=== PATIENT | female | born 1965 | race Caucasian/White ===

== ENCOUNTER 2018-02-10 01:26 | Emergency (ER) | payer BC ==
[~2018-02-10] VITALS: Ht 154.9 cm; Wt 69.5 kg
[~2018-02-10 01:26] MED LIST: B-12; B12 5,000 MCG1 EACH PO; DEXILANT60 MG PO; HYDROCODON-ACE1 EAC7 PO; NIACIN50 MG PO; NORCO 5/3251 TABLET PO; PROVENTIL,200 INHALA; SOMA350 MG PO; ULTRAM50 MG PO
[2018-02-10 03:26] VITALS: BP 116/68
== END 2018-02-10 03:28 | disposition home or self-care (01) ==
LOC: EME 01:26
DX: S00.83XA Contusion of other part of head, initial encounter (principal); W20.8XXA Other cause of strike by thrown, projected or falling object, initial encounter; Y93.K9 Activity, other involving animal care; E04.2 Nontoxic multinodular goiter; J45.909 Unspecified asthma, uncomplicated; F17.200 Nicotine dependence, unspecified, uncomplicated; Z98.51 Tubal ligation status; Z98.1 Arthrodesis status; Z86.718 Personal history of other venous thrombosis and embolism; Z87.39 Personal history of other diseases of the musculoskeletal system and connective tissue; Z98.890 Other specified postprocedural states; Z88.5 Allergy status to narcotic agent; Z88.6 Allergy status to analgesic agent
CPT/HCPCS: 70450; 70486; 72125; 99281; 99284